=== PATIENT | female | born 1995 | race Caucasian/White ===

== ENCOUNTER 2017-10-25 17:53 | Emergency (ER) | payer OTHER | END 2017-10-25 19:30 | disposition home or self-care (01) | LOC: FTE 17:53 | DX: S61.216A Laceration without foreign body of right little finger without damage to nail, initial encounter (principal); W25.XXXA Contact with sharp glass, initial encounter; Y92.219 Unspecified school as the place of occurrence of the external cause | CPT/HCPCS: 73130; 73130-RT; 99283-25 ==